=== PATIENT | female | born 1985 | race Asian ===

== ENCOUNTER → 2016-08-25 | Outpatient (CLI) | payer OTHER ==
[~2016-08-25] MED LIST: ACET-749 PO; PRED10TA PO; PRENTAB26 PO; PRLSR20 PO
== END | disposition home or self-care (01) ==
LOC: C.LABSPEC 11:37
PROVIDERS: ATTEND Obstetrics & Gynecology
DX: O09.93 Supervision of high risk pregnancy, unspecified, third trimester (principal)

== ENCOUNTER 2016-08-26 10:35 | Outpatient (CLI) | payer OTHER | END 2016-08-26 11:55 | disposition home or self-care (01) | LOC: C.OPB 10:35 → C.LD 10:35 → C.OPB 11:55 | PROVIDERS: ATTEND Obstetrics & Gynecology | DX: O46.93 Antepartum hemorrhage, unspecified, third trimester (principal); Z3A.37 37 weeks gestation of pregnancy; O34.13 Maternal care for benign tumor of corpus uteri, third trimester; O99.283 Endocrine, nutritional and metabolic diseases complicating pregnancy, third trimester; E78.00 Pure hypercholesterolemia, unspecified; D25.9 Leiomyoma of uterus, unspecified; O26.833 Pregnancy related renal disease, third trimester; N28.9 Disorder of kidney and ureter, unspecified ==

== ENCOUNTER 2016-08-29 02:42 | Inpatient (IN) | payer OTHER ==
[~2016-08-29] VITALS: Ht 157.5 cm; Wt 66.0 kg
[2016-08-29] MEDS ORDERED: PRENTAB26 PO (03:19)
[2016-08-29] MEDS ORDERED: PRLSR20 PO (03:19)
[2016-08-29] MEDS ORDERED: PRED10TA PO (03:19)
[2016-08-29 03:20] VITALS: Ht 157.5 cm; Wt 66.0 kg
[2016-08-29] MEDS ORDERED: LACTATED RINGER'S 1000ML 1,000 ML IV PRN (04:55)
[2016-08-29 05:27] LABS: HEMATOCRIT 36.7 % (37-47); MEAN CELL VOLUME 98.9 fL (80-100); MEAN CORPUSCULAR HGB CONC 34.3 g/dl (32-36); PLATELET COUNT 254 K/uL (130-400); RED BLOOD COUNT 3.71 M/uL (4.2-5.4); WHITE BLOOD COUNT 8.85 K/uL (4.8-10.8)
[2016-08-29] MEDS ORDERED: BUTORPHANOL TARTRATE 1 MG/ML VIAL ONE (05:28)
[2016-08-29] MEDS ORDERED: BUTORPHANOL TARTRATE 1 MG/ML VIAL IV STA (05:37)
[2016-08-29] MEDS: LACTATED RINGER'S 1000ML 1,000 ML IV SCH ×4 (05:45→19:20)
[2016-08-29] MEDS: HYDROCORTISONE IV 100 MG in SYRINGE 0 ML IV SCH ×3 (05:45→22:05)
[2016-08-29] MEDS ORDERED: BUPIVACAINE 0.25% 30 ML VIAL ONE (07:50)
[2016-08-29] MEDS ORDERED: FENTANYL 2MCG/ML ROPIV 1.25MG/ML 100ML BAG EPI ONE (07:50)
[2016-08-29] MEDS ORDERED: EpHEDrine SULFATE INJ 50 MG/ML AMP ONE (07:50)
[2016-08-29] MEDS ORDERED: FENTANYL CITRATE INJ 50 MCG/1 ML 2 ML VIAL ONE (07:51)
[2016-08-29] MEDS ORDERED: LACTATED RINGER'S 1000ML 500 ML IV PRN ×2 (08:27→10:41)
[2016-08-29] MEDS ORDERED: EpHEDrine SULFATE INJ 50 MG/ML AMP IV PRN (08:30)
[2016-08-29] MEDS ORDERED: NALOXONE HCL INJ 0.4 MG/1 ML VIAL/CARP IV PRN (08:30)
[2016-08-29] MEDS ORDERED: OXYTOCIN 30 UNITS/500ML NSS IV PRN ×2 (10:45→22:45)
[2016-08-29] MEDS ORDERED: ACETAMINOPHEN 650 MG SUPP PR STA (12:39)
[2016-08-29] MEDS ORDERED: ONDANSETRON INJ 2 MG/ML 2 ML VIAL IV STA (12:39)
[2016-08-29] MEDS: FENTANYL 2MCG/ML ROPIV 1.25MG/ML 100ML BAG EPI PRN ×3 (14:58→20:40)
--- NOTE | 2016-08-29 16:06 | Medical Student: [facility] ---
Med Student Progress Note Date of Service Aug 29, 2016. Subjective Pt evaluation today including: conversation w/ patient, physical exam, lab review Pain: controlled with epidural PO Intake: clear liquid Voiding: no voiding problems This is 30year-old female is in labor. Patient is feeling a lot more pressure, especially on back. Nausea and headache are controlled with medications. Intrauterine pressure catheter is in placed. Patient is currently receiving Pitocin with frequent contractions every 2-3 min. Last cervix exam was 10/100/2. Review of Systems Constitutional: No fever Cardiac: No chest pain Abdomen: No nausea, No vomiting Musculoskeletal: No calf pain, No swelling Objective Physical Exam General Appearance: WD/WN, + moderate distress Eyes: bilateral eyes normal inspection ENT: hearing grossly normal Neck: supple Respiratory/Chest: lungs clear, normal breath sounds Cardiovascular: regular rate, rhythm, no murmur Abdomen: + pertinent finding Extremities: no pedal edema, no calf tenderness Neurologic/Psychiatric: alert, oriented x 3 Skin: warm/dry Laboratory Results Last 24 Hours Test 08/29/16 05:12 White Blood Count 8.85 K/uL Red Blood Count 3.71 M/uL Hemoglobin 12.6 g/dL Hematocrit 36.7 % Mean Corpuscular Volume 98.9 fL Mean Corpuscular Hemoglobin 34.0 pg Mean Corpuscular Hemoglobin Concent 34.3 g/dl RDW Standard Deviation 51.8 fL RDW Coefficient of Variation 14.5 % Platelet Count 254 K/uL Mean Platelet Volume 9.0 fL Medications Current Inpatient Medications Medications (Trade) Dose Ordered Sig/Jaya Route Start Time Stop Time Status Last Admin Dose Admin Lactated Ringer's 1,000 ml @ 125 mls/hr Q8H IV 08/29/16 04:55 08/31/16 04:54 08/29/16 08:29 125 MLS/HR Lactated Ringer's 1,000 ml @ 999 mls/hr Q1H1M PRN IV 08/29/16 04:55 09/28/16 04:54 Hydrocortisone Sodium Succinate/ Syringe (Solu-Cortef IV/ Syringe) 2 ml @ 4 mls/min Q8 IV 08/29/16 06:00 09/28/16 05:59 08/29/16 15:01 4 MLS/MIN Fentanyl/ Ropivacaine (Fentanyl 2MCG/ Ml/Ropivacaine 1.25MG/ML) 100 ml PRN PRN EPI 08/29/16 08:30 08/30/16 08:29 08/29/16 14:58 100 ML Naloxone HCl 0.1 mg 0.1 mg UD PRN IV 08/29/16 08:30 08/30/16 08:29 Lactated Ringer's (Lr 1000ml) 500 ml @ 999 mls/hr Q31M PRN IV 08/29/16 08:27 08/30/16 08:26 Ephedrine Sulfate (EpHEDrine SULFATE INJ) 10 mg Q5M PRN IV 08/29/16 08:30 08/30/16 08:29 Oxytocin 30 units 30 units UD PRN IV 08/29/16 10:45 09/28/16 10:44 08/29/16 11:09 30 UNITS Lactated Ringer's (Lr 1000ml) 500 ml @ 999 mls/hr Q31M PRN IV 08/29/16 10:41 09/28/16 10:40 Assessment and Plan Assessment and Plan: 30 year-old female is currently in labor. Labs reviewed - Hgb 12.6 Hct 36.7 Blood type A+, GBS- Plan Nausea and headache resolved with medications Pain controlled with epidural Periodically check on patient Continued [facility] stay due to: other (delivery)
[2016-08-29] MEDS ORDERED: ACETAMINOPHEN 325 MG TAB PO STA (21:02)
[2016-08-29] MEDS ORDERED: BENZOCAINE 20% AER SPR 82.5 GM CAN EXT PRN (22:45)
[2016-08-29] MEDS ORDERED: ACETAMINOPHEN/CODEINE 300/30MG TAB PO PRN (22:45)
[2016-08-29] MEDS ORDERED: ACETAMINOPHEN 325 MG TAB PO PRN (22:45)
[2016-08-29] MEDS ORDERED: LANOLIN OINT EXT PRN ×2 (22:45)
[2016-08-29] MEDS ORDERED: SUPERCREAM 0.870 % 15GM JAR EXT PRN (22:45)
[2016-08-29] MEDS ORDERED: KETOROLAC TROMETHAMINE 30 MG/ML VIAL IV PRN (22:45)
[2016-08-30] VITALS (7 sets, daily range): BP systolic 94–115; BP diastolic 57–74; PULSE 71–96; TEMP 36.5–36.9; O2SAT 96–97
--- NOTE | 2016-08-30 00:04 | DELIVERY SUMMARY ---
DATE OF OPERATION: 08/29/2016 The patient is a 30-year-old G1, P0 female, EDC of 09/15/2016, who presented in spontaneous labor at 37-4/7 weeks. The had been complicated by kidney disease, requiring chronic steroids. She progressed to 5-6 cm dilated and received epidural analgesia, which worked well. Membranes were then ruptured for clear fluid. She required Pitocin augmentation to progress to full dilation. There were moderated-deep variables at times during the labor at which time, the Pitocin had to be stopped temporarily. Patient pushed somewhat effectively and was able to bring the presenting part to +3 station. Because of repetitive deep variable decelerations, the vacuum was used to assist the delivery. The vacuum was placed after emptying the bladder for 300 mL of urine. With the vaccuum applied, & the patient pushing, the vertex was brought to easily through one contraction. Mouth and nasopharynx were suctioned on the perineum. The rest of the delivered with ease. Shoulder and body cord were reduced at the time of delivery. The infant was placed on the mother's abdomen for further stimulation and attention. Cord was clamped and cut. The infant required more stimulation on the baby bed, but had good vigorous cry and was moving all four limbs, once she was moved to the baby bed. The placenta was expressed intact with a 3-vessel cord. A second-degree perineal laceration was repaired with 3-0 chromic in the usual fashion. Estimated blood loss was 350 mL. Mother and infant were doing well after delivery. I attest to the content of the Intraoperative Record and any orders documented therein. Any exceptions are noted below. LEWISD
[2016-08-30] MEDS: IBUPROFEN 600 MG TAB PO PRN ×4 (01:14→20:04)
--- NOTE | 2016-08-30 06:51 | Medical Student: [facility] ---
Med Student [employer] CLERK Progress Nt Date of Service Aug 30, 2016. Subjective conversation w/ patient, chart review, lab review Ambulation: ambulating normally (with some lightheadedness) Voiding: requires PRN straight cath Passing Gas: No Diet Tolerance: Regular Diet Lochia: Moderate Feeding Type: Bottle Feeding (took steroid for kidney disease yesterday) Pain: controlled with ibuprofen, icepack, numbing spray Notes: Patient is currently taking ibuprofen for pain control and since she has kidney disease, she questions about the safety of taking ibuprofen. Tylenol worked well for her before Review of Systems Constitutional: No chills, No fever Respiratory: No shortness of breath Cardiac: No chest pain Abdomen: No nausea, No pain, No vomiting Female : + see HPI Extremities: no pain, but still numb since epidural Objective Vital Signs Date Time Temp Pulse Resp B/P Pulse Ox O2 Delivery O2 Flow Rate FiO2 08/30/16 04:20 36.5 75 16 99/62 97 Room Air 08/30/16 01:20 96 Room Air 08/30/16 01:20 36.9 86 16 102/64 96 Room Air Physical Exam General Appearance: WELL-APPEARING, WD/WN, NO APPARENT DISTRESS Respiratory/Chest: lungs clear, normal breath sounds Cardiovascular: regular rate, rhythm, no murmur Abdomen: non tender, soft Fundus: Firm, Relation to Umbilicus (at umbilicus) Extremities: non-tender Laboratory Results Last 24 Hours Test 08/30/16 04:44 Medications Current Inpatient Medications Medications (Trade) Dose Ordered Sig/Jaya Route Start Time Stop Time Status Last Admin Dose Admin Lactated Ringer's (Lr 1000ml) 500 ml @ 999 mls/hr Q31M PRN IV 08/29/16 10:41 09/28/16 10:40 Prednisone (PredniSONE TAB) 10 mg QAM PO 08/30/16 08:00 09/29/16 07:59 Pantoprazole Sodium (Protonix Tab) 40 mg DAILY PO 08/30/16 08:00 09/29/16 07:59 Oxytocin (Pitocin IV) 30 units UD PRN IV 08/29/16 22:45 09/28/16 22:44 Benzocaine (Dermoplast Aero Spr) 1 appln PRN PRN EXT 08/29/16 22:45 09/28/16 22:44 08/30/16 04:59 1 APPLN Cocaine HCl (Supercream 0.870% Cr) BID PRN EXT 08/29/16 22:45 09/12/16 22:44 08/30/16 05:00 15 GM Lanolin (Lanolin Oint) PRN PRN EXT 08/29/16 22:45 09/28/16 22:44 Prenat Multivit/ [place]/Iron/Folic Ac ( Vitamin Tab) 1 tab DAILY PO 08/30/16 08:00 09/29/16 07:59 Ibuprofen (Motrin Tab) 600 mg Q4H PRN PO 08/29/16 22:45 09/28/16 22:44 08/30/16 01:14 600 MG Acetaminophen (Tylenol Tab) 650 mg Q6H PRN PO 08/29/16 22:45 09/28/16 22:44 Acetaminophen/ Codeine Phosphate (Tylenol w/ Codeine #3 Tab) 1 tab Q4H PRN PO 08/29/16 22:45 09/28/16 22:44 Acetaminophen/ Codeine Phosphate (Tylenol w/ Codeine #3 Tab) 2 tab Q4H PRN PO 08/29/16 22:45 09/28/16 22:44 Bisacodyl (Dulcolax Tab) 5 mg 20 PO 08/30/16 20:00 08/30/16 20:01 Docusate Sodium (coLACE CAP) 100 mg BID PO 08/30/16 08:00 09/29/16 07:59 Ketorolac Tromethamine (Toradol Inj) 30 mg Q6H PRN IV 08/29/16 22:45 09/03/16 22:44 Assessment and Plan Post- Day Number: 1 Continue Routine Care: Resident Physician Supervision Note: I was present with Dr. Garrison during the history and exam. I discussed the case with the resident and agree with the findings and plan as documented in the note. Any exceptions or clarifications are listed here: [None] Documented By: Amanda Angelo 30 year-old female delivered vaginally yesterday with 2nd perineal laceration repair GBS-, Rubella immune Plan - Vitals stable and labs pending - Pain is controlled with ibuprofen, but since she has minimal change kidney disease, tylenol is safer for pain control. - Monitor urination today. Straight catheter as needed to help with urination. - She has some lightheadedness with ambulation yesterday. Encourage ambulation today - Tolerate regular diet
[2016-08-30 07:07] LABS: HEMATOCRIT 29.5 % (37-47)
--- NOTE | 2016-08-30 07:08 | Progress Note ---
Subjective Aug 30, 2016. Subjective conversation w/ patient, physical exam Ambulation: ambulating normally (Lightheaded) Voiding: requires PRN straight cath Passing Gas: No Diet Tolerance: Regular Diet Lochia: Moderate Feeding Type: Bottle Feeding Pain: Well controlled with Ibuprofen Review of Systems Constitutional: No chills, No fever Respiratory: No cough, No shortness of breath Cardiac: No chest pain Breast: No breast pain Abdomen: No nausea, No pain, No vomiting Female : No dysuria Objective Vital Signs Date Time Temp Pulse Resp B/P Pulse Ox O2 Delivery O2 Flow Rate FiO2 08/30/16 04:20 36.5 75 16 99/62 97 Room Air 08/30/16 01:20 96 Room Air 08/30/16 01:20 36.9 86 16 102/64 96 Room Air Physical Exam General Appearance: WELL-APPEARING, WD/WN, NO APPARENT DISTRESS Respiratory/Chest: lungs clear, normal breath sounds Cardiovascular: regular rate, rhythm, no gallop, no murmur Abdomen: non tender, soft Fundus: Firm, Relation to Umbilicus (1cm below umbilicus) Extremities: no calf tenderness Laboratory Results Last 24 Hours Test 08/30/16 06:44 Medications Current Inpatient Medications Medications (Trade) Dose Ordered Sig/Jaya Route Start Time Stop Time Status Last Admin Dose Admin Lactated Ringer's (Lr 1000ml) 500 ml @ 999 mls/hr Q31M PRN IV 08/29/16 10:41 09/28/16 10:40 Prednisone (PredniSONE TAB) 10 mg QAM PO 08/30/16 08:00 09/29/16 07:59 Pantoprazole Sodium (Protonix Tab) 40 mg DAILY PO 08/30/16 08:00 09/29/16 07:59 Oxytocin (Pitocin IV) 30 units UD PRN IV 08/29/16 22:45 09/28/16 22:44 Benzocaine (Dermoplast Aero Spr) 1 appln PRN PRN EXT 08/29/16 22:45 09/28/16 22:44 08/30/16 04:59 1 APPLN Cocaine HCl (Supercream 0.870% Cr) BID PRN EXT 08/29/16 22:45 09/12/16 22:44 08/30/16 05:00 15 GM Lanolin (Lanolin Oint) PRN PRN EXT 08/29/16 22:45 09/28/16 22:44 Prenat Multivit/ Global Category Manager/Iron/Folic Ac ( Vitamin Tab) 1 tab DAILY PO 08/30/16 08:00 09/29/16 07:59 Ibuprofen (Motrin Tab) 600 mg Q4H PRN PO 08/29/16 22:45 09/28/16 22:44 08/30/16 01:14 600 MG Acetaminophen (Tylenol Tab) 650 mg Q6H PRN PO 08/29/16 22:45 09/28/16 22:44 Acetaminophen/ Codeine Phosphate (Tylenol w/ Codeine #3 Tab) 1 tab Q4H PRN PO 08/29/16 22:45 09/28/16 22:44 Acetaminophen/ Codeine Phosphate (Tylenol w/ Codeine #3 Tab) 2 tab Q4H PRN PO 08/29/16 22:45 09/28/16 22:44 Bisacodyl (Dulcolax Tab) 5 mg 20 PO 08/30/16 20:00 08/30/16 20:01 Docusate Sodium (coLACE CAP) 100 mg BID PO 08/30/16 08:00 09/29/16 07:59 Ketorolac Tromethamine (Toradol Inj) 30 mg Q6H PRN IV 08/29/16 22:45 09/03/16 22:44 Assessment and Plan Post- Day#: 1 Continue Routine Care: - Vital Signs reviewed and WNL (temp max 36.8) - Blood Type: A+, GBS- , Rubella Immune - Patient doing well clinically - Encourage Ambulation today - Patient received straight cath overnight, observe for urination today - Tolerating PO Diet - Pain well controlled with Ibuprofen. 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
[2016-08-30] MEDS: DOCUSATE SODIUM 100 MG CAP PO SCH ×2 (08:01→20:04)
[2016-08-30] MEDS: PANTOprazole SOD 40 MG TAB PO SCH (08:01)
[2016-08-30] MEDS: PRENATAL VITAMIN TAB PO SCH (08:01)
--- NOTE | 2016-08-30 08:07 | Anesthesia Procedure Note ---
Anesthesia Epidural Removal Nt Date & Time Aug 30, 2016 at 08:07 Vital Signs Pain Intensity: 6.0 Vital Signs Past 12 Hours Date Time Temp Pulse Resp B/P Pulse Ox O2 Delivery O2 Flow Rate FiO2 08/30/16 04:20 36.5 75 16 99/62 97 Room Air 08/30/16 01:20 96 Room Air 08/30/16 01:20 36.9 86 16 102/64 96 Room Air Notes Mental Status: alert / awake / arousable, participated in evaluation Nausea / Vomiting: adequately controlled Pain: adequately controlled Airway Patency, RR, SpO2: stable & adequate BP & HR: stable & adequate Hydration State: stable & adequate Neuraxial Anesthesia: was administered, sensory block is resolved Anesthetic Complications: no major complications apparent, pt satisfied with anesthetic care Epidural: removed without complications, with tip intact
[2016-08-30] MEDS ORDERED: BISACODYL 5 MG TABEC PO SCH (20:00)
[2016-08-30] MEDS: ACETAMINOPHEN/CODEINE 300/30MG TAB PO PRN (21:39)
[2016-08-31] MEDS: ACETAMINOPHEN/CODEINE 300/30MG TAB PO PRN (04:32)
--- NOTE | 2016-08-31 06:54 | Progress Note ---
Subjective Aug 31, 2016. Subjective conversation w/ patient, physical exam Ambulation: ambulating normally Voiding: no voiding problems Passing Gas: Yes Diet Tolerance: Regular Diet Lochia: Small Feeding Type: Breast Feeding Pain: Pain well controlled with tylenol codeine Review of Systems Constitutional: No chills, No fever Respiratory: No cough, No shortness of breath Cardiac: No chest pain Breast: No breast pain Abdomen: No nausea, No pain, No vomiting Female : No dysuria Objective Vital Signs Date Time Temp Pulse Resp B/P Pulse Ox O2 Delivery O2 Flow Rate FiO2 08/30/16 23:15 Room Air 08/30/16 23:15 36.7 85 18 115/74 Room Air 08/30/16 19:55 36.6 92 18 102/64 Room Air 08/30/16 16:00 36.7 79 20 99/57 Room Air 08/30/16 16:00 Room Air 08/30/16 11:35 36.6 96 20 94/57 Room Air 08/30/16 07:25 36.6 71 18 105/61 Room Air 08/30/16 07:25 Room Air Physical Exam General Appearance: WELL-APPEARING, WD/WN, NO APPARENT DISTRESS Respiratory/Chest: lungs clear, normal breath sounds Cardiovascular: regular rate, rhythm, no gallop, no murmur Abdomen: non tender, soft Fundus: Firm, Relation to Umbilicus (1cm below umbilicus) Extremities: no calf tenderness Medications Current Inpatient Medications Medications (Trade) Dose Ordered Sig/Jaya Route Start Time Stop Time Status Last Admin Dose Admin Lactated Ringer's (Lr 1000ml) 500 ml @ 999 mls/hr Q31M PRN IV 08/29/16 10:41 09/28/16 10:40 Prednisone (PredniSONE TAB) 10 mg QAM PO 08/30/16 08:00 09/29/16 07:59 08/30/16 10:03 10 MG Pantoprazole Sodium (Protonix Tab) 40 mg DAILY PO 08/30/16 08:00 09/29/16 07:59 08/30/16 08:01 40 MG Oxytocin (Pitocin IV) 30 units UD PRN IV 08/29/16 22:45 09/28/16 22:44 Benzocaine (Dermoplast Aero Spr) 1 appln PRN PRN EXT 08/29/16 22:45 09/28/16 22:44 08/30/16 04:59 1 APPLN Cocaine HCl (Supercream 0.870% Cr) BID PRN EXT 08/29/16 22:45 09/12/16 22:44 08/30/16 05:00 15 GM Lanolin (Lanolin Oint) PRN PRN EXT 08/29/16 22:45 09/28/16 22:44 Prenat Multivit/ [employer] Spec/Iron/Folic Ac ( Vitamin Tab) 1 tab DAILY PO 08/30/16 08:00 09/29/16 07:59 08/30/16 08:01 1 TAB Ibuprofen (Motrin Tab) 600 mg Q4H PRN PO 08/29/16 22:45 09/28/16 22:44 08/30/16 20:04 600 MG Acetaminophen (Tylenol Tab) 650 mg Q6H PRN PO 08/29/16 22:45 09/28/16 22:44 08/30/16 08:02 650 MG Acetaminophen/ Codeine Phosphate (Tylenol w/ Codeine #3 Tab) 1 tab Q4H PRN PO 08/29/16 22:45 09/28/16 22:44 Acetaminophen/ Codeine Phosphate (Tylenol w/ Codeine #3 Tab) 2 tab Q4H PRN PO 08/29/16 22:45 09/28/16 22:44 08/31/16 04:32 2 TAB Docusate Sodium (coLACE CAP) 100 mg BID PO 08/30/16 08:00 09/29/16 07:59 08/30/16 20:04 100 MG Ketorolac Tromethamine (Toradol Inj) 30 mg Q6H PRN IV 08/29/16 22:45 09/03/16 22:44 Assessment and Plan Post- Day#: 2 Continue Routine Care: - Vital Signs reviewed and WNL (temp max 36.7) - Blood Type: A+, GBS- , Rubella Immune - Patient doing well clinically - Encourage Ambulation today - Tolerating PO Diet - Pain well controlled with Tylenol Codeine - Discharge today Resident Physician Supervision Note: I interviewed and examined the patient. Discussed with Dr. Garrison and agree with findings and plan as documented in the note. Any exceptions or clarifications are listed here: [None] Documented By: Nita Worrell
--- NOTE | 2016-08-31 06:58 | Discharge Instructions ---
Discharge Instructions Admission Reason for Admission: LABOR (Krishna Garrison MD) Discharge Discharge Diagnosis / Problem: Vaginal delivery (Krishna Garrison MD) Discharge Goals Goal(s): Routine recovery after delivery (Krishna Garrison MD) Medications Continue Dispensed Medications: supercream, dermaplast, tucks, lansinoh (Krishna Garrison MD) Activity Recommendations Activity Limitations: per Instructions/Follow-up section . (Krishna Garrison MD) Instructions / Follow-Up Instructions / Follow-Up ACTIVITY RECOMMENDATIONS: * Gradual return to full activity over the next 2-3 weeks. * No lifting - nothing heavier than baby over the next 2-3 weeks. * Do not engage in vigorous exercise, sexual activity or sports until cleared by your physician. * Do not drive or operate any motorized equipment until cleared by your physician. * You may shower/bathe daily. MEDICATIONS: For discomfort or pain, you may use Acetaminophen (Tylenol), Ibuprofen (Advil), or Naproxen (Aleve) following the package directions. For constipation you may use Colace following the package directions. BREAST CARE: If you are not breast feeding: * Wear a supportive bra 24 hours a day for one to two weeks. * Avoid stimulating your breasts and nipples as much as possible during the first few weeks after delivery. * When taking a shower, have the warm water hit your back, not breasts. * When your breasts feel full, apply ice packs. Usually three to four times a day helps ease the discomfort. * Take a mild pain medication (Tylenol / Motrin) when you are uncomfortable. If breast feeding: * Use breast milk to lubricate nipples. Lansinoh cream may be used for sore nipples. You do not need to remove cream prior to breast feeding. If using a different brand of cream, check the label for directions regarding removal of cream prior to nursing. * Wear a supportive bra. * If having problems with breasts or breast feeding, call a erp consultant or your health care provider. EPISIOTOMY CARE: After delivery, if you have an episiotomy (stitches), the following steps will ease discomfort and aid healing. * For the first 24 hours after delivery, place ice packs next to your episiotomy to help reduce swelling. * After the first 24 hour-period, sitz baths, either portable or in the tub, are suggested. A shower with a shower arm sprayed over the episiotomy may be comforting. * Kassandra care should be done after each voiding and bowel movement. Squirt warm water from a plastic bottle over the perineum (region of the body between the anus and urinary opening) and pat dry. * Use Dermoplast to ease discomfort. Shake container. [place] directly over the episiotomy. Place a Tucks on a clean sanitary pad next to your episiotomy. SPECIAL CARE INSTRUCTIONS: When you are discharged from the hospital, it is important for you to follow the instructions listed below: * During the first week at home, you should be able to care for yourself and your baby. In addition, the usual light household activities are encouraged. * Limit your activities to the way you feel. Do not try to clean the house or move furniture. Be sensible. * If you actively engage in sports and have done so up until the time of your delivery, you may resume these activities as soon as you feel able. This may take up to one month or even longer. Use good judgment. * Continue to take your vitamins for at least six weeks after the of your baby. * Your diet need not be limited unless you were on a special diet before your delivery. Breast-feeding mothers need around 2500 calories per day and at least 64-80 ounces of fluid per day (8 to 10 glasses). * You should eat foods from the four major food groups. Crash diets or fad diets are to be avoided. Eating lean meats, fresh fruits and vegetables, low-fat dairy products, high fiber foods and a regular exercise program, will help you get back to your pre- weight without putting your health at risk. * Constipation is sometimes a problem after delivery. Take a mild laxative as needed. If breast feeding, Milk of Magnesia is acceptable to use. You may use a suppository or Fleets enema if no episiotomy. * A daily shower or tub bath is suggested. Be sure to thoroughly and gently dry the perineum. * A bloody vaginal discharge will usually continue until around four weeks post . A small amount of bleeding may continue for as long as six weeks. Vaginal discharge changes from the bright red bleeding after delivery to pink then brownish and finally yellowish-pink before becoming white and disappearing. * Bleeding may increase with activity. Your first period may come in 4-8 weeks. If you are breast feeding, your period may be delayed even longer. * [place] (sex) can begin whenever both you and your partner feel comfortable and do not have any form of genital infection. It is recommended that you wait at least six weeks for internal and external healing to occur. If you have questions, please talk to your health care practitioner. A condom should be used to prevent infection and . * Foreplay, gentle intercourse and lubrication is very important the first several times to prevent pain. A water-based lubricant such as K-Y jelly or Astroglide may be used. * If you have RH negative blood and your baby is RH positive, you will receive RHOGAM by injection prior to discharge. The nurse will give you a card to keep with you that has the date and place that you received RHOGAM after delivery. * During your care, you had a Rubella screen done to check for the presence of rubella antibodies in your blood. If your test was negative, you will receive a Rubella vaccine prior to discharge. This vaccine may cause a fever, soreness at the injection site and flu-like symptoms. If these symptoms persist, notify your health care practitioner. is not advised for one month after a Rubella vaccine. * Verbalizes understanding of car seat law as reviewed with patient nursing. * Car Seat hand-out given and reviewed with patient by nursing. * Shaken baby information reviewed with patient by nursing. Call you doctor if: * Heavy bleeding (saturating several pads an hour) or passing clots the size of your fist. * A fever >101 degrees F (38.3 degrees C) on two occasions four hours apart and /or chills. * Unusual pain in the pelvic or vaginal areas. * "Baby Blues" lasting longer than two weeks. If you have any questions or concerns, call your health care practitioner at . FOLLOW UP VISIT: * Please call the office at to schedule a 6 week examination. It is important you keep this appointment. It is important for you to make arrangements for either yearly or twice yearly check-ups thereafter. (Krishna Garrison MD) Current Hospital Diet Patient's current hospital diet: Regular OB Diet (Krishna Garrison MD) Discharge Diet Recommended Diet: Regular Diet (Krishna Garrison MD) Pending Studies Studies pending at discharge: no (Krishna Garrison MD) Medical Emergencies . Who to Call and When: Medical Emergencies: If at any time you feel your situation is an emergency, please call 911 immediately. . (Krishna Garrison MD) Non-Emergent Contact Non-Emergency issues call your: Trust Advisor . (Krishna Garrison MD) . "Provider Documentation" section prepared by Krishna Garrison. (Krishna Garrison MD) VTE Core Measure Inpt VTE Proph given/why not?: Treatment not indicated (Krishna Garrison MD)
[2016-08-31] MEDS ORDERED: ACET-749 PO (07:16)
[2016-08-31 07:30] VITALS: BP 102/67; PULSE 81; TEMP 36.7; O2SAT 97
[2016-08-31 07:54] VITALS: BP 102/67; PULSE 81; TEMP 36.7; O2SAT 97
[2016-08-31 09:06] VITALS: O2SAT 97
[2016-08-31] MEDS: DOCUSATE SODIUM 100 MG CAP PO SCH (09:30)
[2016-08-31] MEDS: PRENATAL VITAMIN TAB PO SCH (09:30)
[2016-08-31] MEDS: PANTOprazole SOD 40 MG TAB PO SCH (09:30)
[2016-08-31] MEDS: IBUPROFEN 600 MG TAB PO PRN ×2 (09:37→13:55)
[2016-08-31 14:45] VITALS: BP_DIAS 67; PULSE 81; TEMP 36.7
[2016-08-31 15:26] VITALS: BP 126/72; PULSE 93; TEMP 36.6; O2SAT 96
--- NOTE | 2016-09-11 23:00 | DISCHARGE SUMMARY ---
PRINCIPAL DIAGNOSES: Vacuum extraction because of nonreassuring heart rate pattern in a 37 and 4/7 weeks and history of chronic steroid use in the mother because of chronic renal disease. HISTORY: The patient is a 30-year-old G1, P0, female, EDC of 09/15/2016 who presented in spontaneous labor at 37-1/2 weeks. Her had been complicated by a history of chronic kidney disease for which she received steroids. She was given stress teres during her labor. She received epidural analgesia and 5-6 cm dilated. Membranes were ruptured for clear fluid. She did require Pitocin to augment her labor. She progressed to full dilation and there was moderate to deep variables of the heart rate. At times, she was pushing somewhat effectively, but only brought the presenting part to +3 station. Because of the repetitive nature of these deep variable decelerations, vacuum assistance was used. The vacuum was placed during contraction and applied and through one contraction the vertex was brought easily to . There was a shoulder and body coiled at the time of delivery. This was reduced after delivering the head. The had vigorous crying was moving all 4 limbs. The patient's course was uneventful, she received Tylenol with codeine for her cramping as she cannot take ibuprofen because of her kidney disease. She was placed back on her steroids as taken prior to delivery. Hemoglobin on admission was 12.6, hematocrit 36.7; first day hemoglobin 10.2, hematocrit 29.5. The patient was sent home with the usual written and verbal instructions. She will be seen in the office in 6 weeks for her followup visit.
== END 2016-08-31 16:15 | disposition home or self-care (01) | DRG 775 ==
LOC: C.OPB 02:42 → C.LD 02:42 → C.OPB 04:57 → C.LD 04:57 → C.OBG 08-30 01:20
PROVIDERS: ADMIT Obstetrics & Gynecology; ATTEND Obstetrics & Gynecology
PROC: 10D07Z6 Extraction of Products of Conception, Vacuum, Via Natural or Artificial Opening (ICD-10-PCS; principal; 2016-08-29)
PROC: 10907ZC Drainage of Amniotic Fluid, Therapeutic from Products of Conception, Via Natural or Artificial Opening (ICD-10-PCS; 2016-08-29)
PROC: 0KQM0ZZ Repair Perineum Muscle, Open Approach (ICD-10-PCS; 2016-08-29)
DX: O26.833 Pregnancy related renal disease, third trimester (principal); Z37.0 Single live birth; O76 Abnormality in fetal heart rate and rhythm complicating labor and delivery; N28.9 Disorder of kidney and ureter, unspecified; O34.13 Maternal care for benign tumor of corpus uteri, third trimester; D25.9 Leiomyoma of uterus, unspecified; Z3A.37 37 weeks gestation of pregnancy; O70.1 Second degree perineal laceration during delivery; E78.00 Pure hypercholesterolemia, unspecified; O75.89 Other specified complications of labor and delivery; Z79.899 Other long term (current) drug therapy

== ENCOUNTER → 2016-10-11 | Outpatient (CLI) | payer OTHER | END | disposition home or self-care (01) | LOC: C.PAPS 14:08 | PROVIDERS: ATTEND Obstetrics & Gynecology | DX: Z12.4 Encounter for screening for malignant neoplasm of cervix (principal); R87.616 Satisfactory cervical smear but lacking transformation zone ==

== ENCOUNTER 2017-08-16 20:31 | Emergency (ER) | payer OTHER ==
[~2017-08-16] VITALS: Ht 160 cm; Wt 53.5 kg
[~2017-08-16 20:31] MED LIST changes: -ACET-749 PO
[2017-08-16 20:45] VITALS: TEMP 36.9; Ht 160 cm; Wt 53.5 kg
[2017-08-16] MEDS ORDERED: PRD5 PO (20:58)
[2017-08-16] MEDS ORDERED: OXYCODONE/ACETAMINOPHEN 5-325 TAB PO STA (21:35)
[2017-08-16] MEDS ORDERED: DIPHTHERIA/TETANUS/PERTUSSIS 0.5 ML SYR/VIAL IM. ONE (21:45)
[2017-08-16] MEDS ORDERED: LIDOCAINE HCL 2% JELLY 30 ML TUBE EXT ONE (21:45)
[2017-08-16] MEDS ORDERED: PERCOCET HOME PACK PO ONE (21:45)
[2017-08-16] MEDS ORDERED: OXYC-57 PO (22:25)
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
[2017-08-16 22:58] VITALS: BP 105/67; PULSE 80; O2SAT 96
== END 2017-08-16 23:01 | disposition home or self-care (01) ==
LOC: C.EDB 20:32 → C.EDD 23:01
DX: T24.211A Burn of second degree of right thigh, initial encounter (principal); T25.222A Burn of second degree of left foot, initial encounter; T31.0 Burns involving less than 10% of body surface; X12.XXXA Contact with other hot fluids, initial encounter; Z23 Encounter for immunization; Z79.899 Other long term (current) drug therapy

== ENCOUNTER → 2017-09-27 | Outpatient (CLI) | payer OTHER ==
[~2017-09-27] MED LIST changes: +OXYC-57 PO; +PRD5 PO; -PRED10TA PO; -PRENTAB26 PO
[2017-09-27 12:21] LABS: HEMATOCRIT 38.6 % (37-47); HEMOGLOBIN 12.6 g/dL (12.0-16.0); MEAN CELL VOLUME 93.5 fL (80-100); MEAN CORPUSCULAR HEMOGLOBIN 30.5 pg (25-34); MEAN CORPUSCULAR HGB CONC 32.6 g/dl (32-36); MEAN PLATELET VOLUME 9.5 fL (7.4-10.4); PLATELET COUNT 306 K/uL (130-400); RED CELL DISTRIBUTION WIDTH CV 14.5 % (11.5-14.5); RED CELL DISTRIBUTION WIDTH SD 48.9 fL (36.4-46.3); WHITE BLOOD COUNT 6.73 K/uL (4.8-10.8)
== END | disposition home or self-care (01) ==
LOC: C.LAB1850 10:14
PROVIDERS: ATTEND Obstetrics & Gynecology
DX: D25.9 Leiomyoma of uterus, unspecified (principal)

== ENCOUNTER → 2018-03-13 | Outpatient (CLI) | payer OTHER ==
[~2018-03-13] MED LIST changes: -OXYC-57 PO
== END | disposition home or self-care (01) ==
LOC: C.RDSM 09:52
PROVIDERS: ATTEND Family Medicine
DX: S92.901A Unspecified fracture of right foot, initial encounter for closed fracture (principal); X58.XXXA Exposure to other specified factors, initial encounter